=== PATIENT | female | born 1965 | race Caucasian/White ===

== ENCOUNTER 2023-12-22 08:28 | Emergency (ER) | payer OTHER ==
[~2023-12-22] VITALS: Ht 157.5 cm; Wt 77.1 kg
[2023-12-22 08:49] VITALS: BP 144/87; PULSE 76; RESP 20; TEMP 97.9; O2SAT 98
[2023-12-22 10:23] LABS: APPEARANCE,URINE CLEAR (CLEAR); BILIRUBIN,URINE NEGATIVE (NEGATIVE); BLOOD, URINE NEGATIVE (NEGATIVE); COLOR,URINE YELLOW (YELLOW); LEUKOCYTE ESTERASE ,URINE TRACE (NEGATIVE); NITRITE, URINE NEGATIVE (NEGATIVE); PROTEIN,URINE NEGATIVE (NEGATIVE); UGLUCOSE NEGATIVE (NEGATIVE); UROBILINOGEN,URINE 0.2 EU/dL (0.2 - 1)
[2023-12-22 10:38] LABS: RBC,URINE 0-5 /HPF (0-5)
[2023-12-22 10:39] LABS: BACTERIA,URINE 1+ /HPF (None Seen); MUCUS,URINE 1+ /LPF (None Seen)
[2023-12-22] MEDS ORDERED: DICL20GE TP (10:54)
[2023-12-22] MEDS ORDERED: CEPH-588 PO (10:54)
[2023-12-22 10:58] VITALS: BP 140/88; PULSE 64; RESP 18; TEMP 98.2; O2SAT 99
== END 2023-12-22 10:58 | disposition home or self-care (01) ==
LOC: MED 08:28
DX: M79.661 Pain in right lower leg (principal); N39.0 Urinary tract infection, site not specified; M25.561 Pain in right knee; Z79.899 Other long term (current) drug therapy; Z88.8 Allergy status to other drugs, medicaments and biological substances
CPT/HCPCS: 81001; 87086; 93971; 99284